=== PATIENT | male | born 1985 | race Caucasian/White ===

== ENCOUNTER 2021-10-25 13:45 | Emergency (ER) | payer MEDICAID ==
[~2021-10-25] VITALS: Ht 172.7 cm; Wt 93.0 kg
[2021-10-25 13:53] VITALS: BP 127/90
[2021-10-25 16:10] LABS: BASOPHILS % 0.6 % (0.0-2.0); EOSINOPHILS % 2.2 % (0.0-5.0); HEMATOCRIT. 43.6 % (42.0-52.0); HEMOGLOBIN. 14.6 g/dL (14.0-18.0); LYMPHOCYTES % 39.4 % (20.0-50.0); MEAN CORPUSCULAR HEMOGLOBIN 30.2 pg (28.0-32.0); MEAN CORPUSCULAR VOLUME 90.6 fL (80.0-94.0); MEAN PLATELET VOLUME 8.3 fl (7.4-10.4); MONOCYTES % 7.8 % (2.0-8.0); PLATELET 255 x1000/uL (130-400); RED BLOOD CELL COUNT 4.82 mill/uL (4.7-6.1); RED CELL DISTRIBUTION WIDTH 13.8 % (11.6-14.6)
[2021-10-25 16:17] LABS: CHLORIDE 110 mEq/L (98-107)
[2021-10-25 16:50] LABS: CLARITY URINE CLEAR (CLEAR); COLOR URINE YELLOW (YELLOW); KETONES URINE NEGATIVE (NEGATIVE); LEUKOCYTE ESTERASE URINE NEGATIVE (NEGATIVE); NITRITE URINE NEGATIVE (NEGATIVE); OCCULT BLOOD URINE NEGATIVE (NEGATIVE); PH URINE 5.5 (4.5-8.0); PROTEIN URINE NEGATIVE (NEGATIVE); SPECIFIC GRAVITY URINE 1.029 (1.005-1.030); UROBILINOGEN URINE 0.2 E.U./dL (0.2-1.0)
== END 2021-10-25 17:06 | disposition home or self-care (01) ==
LOC: ER 13:45
DX: R53.1 Weakness (principal); R42 Dizziness and giddiness; R94.31 Abnormal electrocardiogram [ECG] [EKG]
CPT/HCPCS: 36415; 71045; 80053; 81003; 85025; 93005; 99285

== ENCOUNTER 2021-11-07 21:34 | Emergency (ER) | payer MEDICAID ==
[~2021-11-07] VITALS: Ht 172.7 cm; Wt 94.4 kg
[2021-11-07 22:23] VITALS: BP 136/74
[2021-11-07 23:00] LABS: CLARITY URINE CLOUDY (CLEAR); COLOR URINE ORANGE (YELLOW); KETONES URINE NEGATIVE (NEGATIVE); LEUKOCYTE ESTERASE URINE 3+ (NEGATIVE); NITRITE URINE POSITIVE (NEGATIVE); OCCULT BLOOD URINE 3+ (NEGATIVE); PROTEIN URINE 2+ (NEGATIVE); SPECIFIC GRAVITY URINE 1.021 (1.005-1.030)
[2021-11-08] MEDS ORDERED: CEPH500C2 MT ×2 (02:36→11:19)
[2021-11-08] MEDS ORDERED: CEPHALEXIN 250MG CAPSULE PO ONE (02:45)
== END 2021-11-08 03:06 | disposition home or self-care (01) ==
LOC: ER 21:34
DX: N39.0 Urinary tract infection, site not specified (principal)
CPT/HCPCS: 81003; 87077; 87186; 99283

== ENCOUNTER 2022-11-27 20:46 | Emergency (ER) | payer SELFPAY ==
[~2022-11-27] VITALS: Ht 177.8 cm; Wt 103.0 kg
[~2022-11-27 20:46] MED LIST: CEPH500C2 MT
[2022-11-27 20:57] VITALS: O2SAT 98
[2022-11-27 21:16] LABS: CLARITY URINE CLEAR (CLEAR); COLOR URINE DARK YELLOW (YELLOW); KETONES URINE TRACE (NEGATIVE); LEUKOCYTE ESTERASE URINE 1+ (NEGATIVE); NITRITE URINE NEGATIVE (NEGATIVE); OCCULT BLOOD URINE NEGATIVE (NEGATIVE); PROTEIN URINE TRACE (NEGATIVE); SPECIFIC GRAVITY URINE 1.034 (1.005-1.030)
[2022-11-27 21:35] LABS: BASOPHILS % 0.5 % (0.0-2.0); EOSINOPHILS % 1.6 % (0.0-5.0); HEMATOCRIT. 46.6 % (42.0-52.0); HEMOGLOBIN. 15.8 g/dL (14.0-18.0); LYMPHOCYTES % 13.9 % (20.0-50.0); MEAN CORPUSCULAR VOLUME 88.5 fL (80.0-94.0); MEAN PLATELET VOLUME 8.2 fl (7.4-10.4); MONOCYTES % 6.7 % (2.0-8.0); NEUTROPHILS % 77.3 % (40.0-76.0); PLATELET 272 x1000/uL (130-400); RED BLOOD CELL COUNT 5.27 mill/uL (4.7-6.1); RED CELL DISTRIBUTION WIDTH 14.1 % (11.6-14.6)
[2022-11-27 21:42] LABS: CHLORIDE 109 mEq/L (98-107)
[2022-11-28] MEDS ORDERED: FAMO-135 MT (02:47)
[2022-11-28] MEDS ORDERED: METH-653 MT (02:47)
[2022-11-28 03:16] VITALS: BP 122/87; PULSE 95; RESP 16; TEMP 98.8
== END 2022-11-28 03:16 | disposition home or self-care (01) ==
LOC: ER 20:46
DX: S39.012A Strain of muscle, fascia and tendon of lower back, initial encounter (principal); K29.70 Gastritis, unspecified, without bleeding; X58.XXXA Exposure to other specified factors, initial encounter; Y93.89 Activity, other specified; Y92.89 Other specified places as the place of occurrence of the external cause; Y99.8 Other external cause status
CPT/HCPCS: 36415; 71045; 80053; 81003; 85025; 93005; 99285